=== PATIENT | male | born 1980 ===

== ENCOUNTER → 2022-01-21 | Outpatient (CLI) | payer OTHER ==
--- NOTE | 2022-01-21 10:04 | Diagnostic Imaging Report ---
PROCEDURE: US Scrotum. TECHNIQUE: Multiple real-time grayscale images were obtained over the scrotum in various projections bilaterally. INDICATION: Right epididymitis. Right testicle measures 4.4 x 2.4 x 3.3 cm and left testicle measures 4.4 x 2.2 x 3.1 cm. Both testes demonstrate homogeneous echotexture. No testicular mass is detected. There is blood flow to both testes. The right epididymis is enlarged compared to the left. No significant hypervascularity is demonstrated however. No hydrocele or varicocele is detected. IMPRESSION: 1. No evidence of testicular mass or vascular compromise. 2. Right epididymal enlargement compared to left. No significant hypervascularity is detected. Dictated by: Dictated on workstation # [id number]
== END ==
LOC: RAD 09:00
PROVIDERS: ATTEND Urology
DX: N45.1 Epididymitis (principal); N50.89 Other specified disorders of the male genital organs
CPT/HCPCS: 76870